=== PATIENT | male | born 1970 | race Caucasian/White ===

== ENCOUNTER 2021-05-25 16:47 | Outpatient (REF) | payer MEDICAID, SELFPAY ==
[2021-05-27 11:33] LABS: COVID-19 RT-PCR UVMMC Result Negative (Negative)
== END 2021-05-25 16:48 | disposition home or self-care (01) ==
LOC: NCHCN 16:47
PROVIDERS: Visit Provider Registered Nurse
DX: Z20.822 Contact with and (suspected) exposure to COVID-19 (principal); J06.9 Acute upper respiratory infection, unspecified
CPT/HCPCS: U0003

== ENCOUNTER 2021-08-11 20:40 | Outpatient (REF) | payer MEDICAID, SELFPAY ==
[2021-08-11 21:07] LABS: Bacteria Few HPF (Negative); C & S Indicated? C&S Done As Ordered; Casts Negative LPF (Negative); Crystals Negative HPF (Negative); Epithelial Cells Many HPF (Negative); Mucus Trace (Negative)
== END 2021-08-11 20:41 | disposition home or self-care (01) ==
LOC: NCHCN 20:40
PROVIDERS: Visit Provider Registered Nurse
DX: R39.89 Other symptoms and signs involving the genitourinary system (principal); R10.31 Right lower quadrant pain
CPT/HCPCS: 81015; 87086

== ENCOUNTER 2021-08-15 18:39 | Outpatient (REF) | payer MEDICAID, SELFPAY ==
[2021-08-16 10:32] LABS: Hepatitis C Ab w Rflx HCV PCR Negative (Negative)
[2021-08-16 10:42] LABS: HIV-1/2 Ag & Ab Screen Negative (Negative)
[2021-08-16 11:13] LABS: Syphilis Serology (RPR) Negative (Negative)
[2021-08-17 08:20] LABS: Chlamydia Result Negative (Negative); GC Result Negative (Negative)
== END 2021-08-15 18:40 | disposition home or self-care (01) ==
LOC: NCHCN 18:39
PROVIDERS: Visit Provider Registered Nurse
DX: Z11.3 Encounter for screening for infections with a predominantly sexual mode of transmission (principal); Z11.4 Encounter for screening for human immunodeficiency virus [HIV]; Z11.59 Encounter for screening for other viral diseases; R39.89 Other symptoms and signs involving the genitourinary system
CPT/HCPCS: 86803; 87389; 87491; 87591; 86592; 87086

== ENCOUNTER 2022-01-24 23:31 | Outpatient (REF) | payer MEDICAID, SELFPAY ==
[2022-01-26 10:01] LABS: HIV-1/2 Ag & Ab Screen Negative (Negative)
[2022-01-26 11:07] LABS: Syphilis Serology (RPR) Negative (Negative)
[2022-01-26 15:10] LABS: Chlamydia Result Negative (Negative); GC Result Negative (Negative)
== END 2022-01-24 23:32 | disposition home or self-care (01) ==
LOC: NCHCN 23:31
PROVIDERS: Visit Provider Nurse Practitioner Family
DX: Z11.4 Encounter for screening for human immunodeficiency virus [HIV] (principal); Z11.3 Encounter for screening for infections with a predominantly sexual mode of transmission
CPT/HCPCS: 87389; 87491; 87591; 86592

== ENCOUNTER 2022-05-29 15:54 | Outpatient (REF) | payer MEDICAID, SELFPAY ==
[2022-05-29 22:04] LABS: HCT 38.7 % (40.0-50.0); HGB 12.7 g/dL (13.5-17.5); MCH 29.8 pg (27.0-33.0); MCHC 32.8 % (32.0-36.0); MCV 91 fL (80-95); Platelet Count 370 10^3/uL (130-400); RBC 4.26 10^6/uL (4.36-5.78); RDW 15.2 % (11.8-14.1); RDW-SD 50.2 fL; WBC 6.97 10^3/uL (4.4-10.8)
[2022-05-29 22:42] LABS: Vitamin D 25 Total 58.5 ng/mL (30-100)
[2022-05-29 22:47] LABS: ALT 34 U/L (16-63); AST 30 U/L (15-37); Albumin 3.8 g/dL (3.4-5.0); Alkaline Phosphatase 68 U/L (46-116); Anion Gap 7.3 mmol/L (3-11); BUN 9 mg/dL (7-18); Bilirubin, Total 0.4 mg/dL (0.2-1.0); CO2 27.7 mmol/L (21.0-32.0); CREATININE 0.9 mg/dL (0.70-1.30); Calcium 9.1 mg/dL (8.5-10.1); Chloride 106 mmol/L (98-107); Estimated GFR 102.76 (mL/min/1.73m2); Folate 14.8 ng/mL (8.6-20.0); Glucose 82 mg/dL (74-106); Magnesium 2.1 mg/dL (1.8-2.4); Potassium 4.8 mmol/L (3.5-5.1); Sodium 141 mmol/L (136-145); Vitamin B12 223 pg/mL (193-986)
[2022-05-29 23:24] LABS: Hemoglobin A1C 5.4 % (<5.7)
== END 2022-05-29 15:55 | disposition home or self-care (01) ==
LOC: NCHCN 15:54
PROVIDERS: Visit Provider Nurse Practitioner Family
DX: R41.3 Other amnesia (principal); Z98.84 Bariatric surgery status
CPT/HCPCS: 80053; 82306; 85027; 82607; 82746; 83036; 83540; 83735

== ENCOUNTER 2022-10-05 15:18 | Outpatient (REF) | payer MEDICAID, SELFPAY | END 2022-10-05 15:19 | disposition home or self-care (01) | LOC: NCHCN 15:18 | PROVIDERS: PCP Internal Medicine; Visit Provider Internal Medicine | DX: R31.9 Hematuria, unspecified (principal) | CPT/HCPCS: 87086 ==

== ENCOUNTER 2022-10-15 15:46 | Outpatient (REF) | payer MEDICAID, SELFPAY | END 2022-10-15 15:47 | disposition home or self-care (01) | LOC: NCHCN 15:46 | PROVIDERS: PCP Internal Medicine; Visit Provider Nurse Practitioner Family | DX: R31.9 Hematuria, unspecified (principal) | CPT/HCPCS: 87086 ==

== ENCOUNTER 2022-12-13 18:20 | Outpatient (REF) | payer MEDICAID, SELFPAY ==
[2022-12-13 21:09] LABS: Iron 122 ug/dL (65-175); Total Iron Binding Capacity 411 ug/dL (250-450); Transferrin Sat 30 % (20-55)
[2022-12-13 21:20] LABS: ALT 43 U/L (16-63); AST 23 U/L (15-37); Albumin 3.7 g/dL (3.4-5.0); Alkaline Phosphatase 60 U/L (46-116); Anion Gap 8.9 mmol/L (3-11); BUN 11 mg/dL (7-18); Bilirubin, Total 0.4 mg/dL (0.2-1.0); CO2 26.1 mmol/L (21.0-32.0); CREATININE 0.9 mg/dL (0.70-1.30); Calcium 9.2 mg/dL (8.5-10.1); Chloride 104 mmol/L (98-107); Estimated GFR 102.12 (mL/min/1.73m2); Ferritin 64 ng/mL (26-388); Glucose 71 mg/dL (74-106); Potassium 4.5 mmol/L (3.5-5.1); Sodium 139 mmol/L (136-145); TSH (W/Ref FT4) 0.96 uIU/mL (0.36-3.74)
== END 2022-12-13 18:21 | disposition home or self-care (01) ==
LOC: NCHCN 18:20
PROVIDERS: PCP Internal Medicine; Visit Provider Family Medicine
DX: R45.1 Restlessness and agitation; R41.3 Other amnesia; E66.01 Morbid (severe) obesity due to excess calories
CPT/HCPCS: 80053; 82728; 83540; 83550; 84443

== ENCOUNTER 2023-01-11 19:19 | Outpatient (REF) | payer MEDICAID, SELFPAY ==
[2023-01-11 21:03] LABS: Abs Immature Grans 0.02 10^3/uL (0.0-0.06); Absolute Basophil Count 0.05 10^3/uL (0.0-0.2); Absolute Eosinophil Count 0.01 10^3/uL (0.0-0.7); Absolute Lymphocyte Count 1.46 10^3/uL (1.2-3.4); Absolute Monocyte Count 0.61 10^3/uL (0.1-0.8); Absolute Neutrophil Count 5.57 10^3/uL (1.2-6.7); Basophils % 0.6; Eosinophils % 0.1; HCT 44.1 % (40.0-50.0); HGB 15.1 g/dL (13.5-17.5); Immature Grans % 0.3; Lymphocytes % 18.9; MCH 29.5 pg (27.0-33.0); MCHC 34.2 % (32.0-36.0); MCV 86 fL (80-95); Monocytes % 7.9; Neutrophils % 72.2; Platelet Count 448 10^3/uL (130-400); RBC 5.12 10^6/uL (4.36-5.78); RDW 17.2 % (11.8-14.1); RDW-SD 54.4 fL; WBC 7.72 10^3/uL (4.4-10.8)
[2023-01-11 21:33] LABS: ALT 48 U/L (16-63); AST 44 U/L (15-37); Albumin 4.2 g/dL (3.4-5.0); Alkaline Phosphatase 58 U/L (46-116); Anion Gap 13.9 mmol/L (3-11); BUN 8 mg/dL (7-18); Bilirubin, Total 0.8 mg/dL (0.2-1.0); CO2 21.1 mmol/L (21.0-32.0); CREATININE 0.9 mg/dL (0.70-1.30); Calcium 9.9 mg/dL (8.5-10.1); Chloride 102 mmol/L (98-107); Estimated GFR 102.12 (mL/min/1.73m2); Glucose 81 mg/dL (74-106); Potassium 3.8 mmol/L (3.5-5.1); Sodium 137 mmol/L (136-145)
== END 2023-01-11 19:20 | disposition home or self-care (01) ==
LOC: NCHCN 19:19
PROVIDERS: PCP Internal Medicine; Visit Provider Family Medicine
DX: J01.10 Acute frontal sinusitis, unspecified (principal); R10.9 Unspecified abdominal pain; R68.83 Chills (without fever)
CPT/HCPCS: 80053; 85025

== ENCOUNTER → 2023-04-04 01:43 | Outpatient (CLI) | payer OTHER, SELFPAY ==
--- NOTE | 2023-04-04 11:09 | DI.RAD_ITS ---
Exam(s) XR HIP RT COMPLETE AP PELVIS EXAM: XR HIP RT COMPLETE AP PELVIS CLINICAL HISTORY: DISABILITY DETERMINATION,RT HIP PAIN,STATE SEVERITY,Z02.71. TECHNIQUE: 2D digital imaging was performed. COMPARISON: No exams were available for comparison FINDINGS: Two views. No evidence of pelvic nor hip fracture. No evidence of avascular necrosis. No hip joint space narro wing. Additional lateral view of the right hip reveals no joint space narrowing nor osteophytes. Sacroiliac joints appear unremarkable. Uppermost aspect of the field of view reveals evidence of abdominal wall hernia mesh. There are tuba l ligation clips evident in both sides of the pelvis. IMPRESSION: No significant osseous findings in the pelvis and hips. DATA REPOSITORY: RADIATION DOSE DELIVERED:
== END ==
PROVIDERS: PCP Internal Medicine; Visit Provider Pediatrics Pediatric Rheumatology
DX: Z02.71 Encounter for disability determination (principal)
CPT/HCPCS: 73502

== ENCOUNTER 2023-07-05 13:47 | Outpatient (REF) | payer MEDICAID, SELFPAY ==
--- NOTE | 2023-07-05 13:34 | SKI_PTH ---
PATIENT: Keisha Zhu LOC: [facility] U#:[id number] AGE/SX: 52/F ROOM: RE07/05/[address]: LENA Hilton : 1970 BED: DIS: 07/05/2023 SPEC #: [id number] RECD: 07/08/23 12:59 STATUS: CHARLI RESurekha #: [id number] ARLET: 07/05/23 13:[address]: Ja Morley DEPT: Surgical Specimen RECD BY: Corie Davis ENTERED: 07/08/23 13:00 SP TYPE: HESHAM MORSE DR: Johanna Dumont Tissues: 1 - SKIN BIOPSY(SHAVE/PUNCH) Procedures: SKIN LEVEL 4 Comments: [id number]
== END 2023-07-05 13:48 | disposition home or self-care (01) ==
LOC: LBN 13:47
PROVIDERS: PCP Family Medicine; Visit Provider Physician Assistant
DX: L28.2 Other prurigo (principal)
CPT/HCPCS: 88305

== ENCOUNTER 2024-05-15 16:25 | Outpatient (REF) | payer MEDICAID, SELFPAY ==
[2024-05-17 09:32] LABS: HIV-1/2 Ag & Ab Screen Negative (Negative)
[2024-05-18 11:10] LABS: HSV Type 1 Ab, IgG Positive (Negative); HSV Type 2 Ab, IgG Positive (Negative)
[2024-05-18 11:29] LABS: Syphilis Serology (RPR) Negative (Negative)
[2024-05-18 13:03] LABS: GC Result Negative (Negative)
[2024-05-18 13:27] LABS: Chlamydia Result Positive (Negative)
== END 2024-05-15 16:26 | disposition home or self-care (01) ==
LOC: NCHCN 16:25
PROVIDERS: PCP Family Medicine; Visit Provider Physician Assistant
DX: Z11.3 Encounter for screening for infections with a predominantly sexual mode of transmission (principal)
CPT/HCPCS: 87389; 87491; 87591; 86592; 86695; 86696

== ENCOUNTER 2024-09-02 13:47 | Outpatient (REF) | payer MEDICAID, SELFPAY ==
[2024-09-02 14:13] LABS: HGB 11.8 g/dL (11.2-15.7); MCH 27.6 pg (27.0-33.0); MCHC 32.8 % (32.0-36.0); MCV 84 fL (80-95); MPV 11.5 fL (8.0-11.0); Platelet Count 388 10^3/uL (130-400); RBC 4.27 10^6/uL (3.93-5.22); RDW 15.9 % (11.7-14.6); RDW-SD 48.5 fL; WBC 9.77 10^3/uL (4.4-10.8)
[2024-09-02 14:40] LABS: ALT 31 U/L (14-59); AST 23 U/L (15-37); Albumin 3.7 g/dL (3.4-5.0); Alkaline Phosphatase 57 U/L (46-116); Anion Gap 8.9 mmol/L (3-11); BUN 10 mg/dL (7-18); Bilirubin, Total 0.4 mg/dL (0.2-1.0); CO2 28.1 mmol/L (21.0-32.0); CREATININE 1.1 mg/dL (0.55-1.02); Chloride 104 mmol/L (98-107); Estimated GFR 59.34 (mL/min/1.73m2); Glucose 80 mg/dL (74-106); Potassium 4.1 mmol/L (3.5-5.1); Sodium 141 mmol/L (136-145); Total Protein 7.2 g/dL (6.4-8.2)
[2024-09-02 18:21] LABS: Lipase 32 U/L (<78)
[2024-09-02 23:24] LABS: Hepatitis C Ab w Rflx HCV PCR Negative (Negative)
[2024-09-02 23:29] LABS: HIV-1/2 Ag & Ab Screen Negative (Negative)
[2024-09-03 12:02] LABS: Syphilis Serology (RPR) Negative (Negative)
[2024-09-03 12:35] LABS: GC Result Negative (Negative)
[2024-09-03 13:04] LABS: Bacterial Vaginosis (BV) Negative (Negative); Candida glabrata Negative (Negative); Candida species group Negative (Negative); Trichomonas vaginalis Negative (Negative)
[2024-09-03 13:24] LABS: Chlamydia Result Positive (Negative)
== END 2024-09-02 13:48 | disposition home or self-care (01) ==
LOC: NCHCN 13:47
PROVIDERS: PCP Family Medicine; Visit Provider Family Medicine
DX: R10.9 Unspecified abdominal pain (principal); Z11.3 Encounter for screening for infections with a predominantly sexual mode of transmission
CPT/HCPCS: 80053; 81513; 83690; 85027; 86803; 87389; 87481; 87491; 87591; 87661; 86592; 87086

== ENCOUNTER 2024-12-21 16:20 | Outpatient (REF) | payer MEDICAID, SELFPAY ==
[2024-12-23 12:35] LABS: Chlamydia Result Negative (Negative); GC Result Negative (Negative)
== END 2024-12-21 16:21 | disposition home or self-care (01) ==
LOC: NCHCN 16:20
PROVIDERS: PCP Family Medicine; Visit Provider Family Medicine
DX: Z11.3 Encounter for screening for infections with a predominantly sexual mode of transmission (principal)
CPT/HCPCS: 87491; 87591